=== PATIENT | male | born 1955 | race Caucasian/White ===

== ENCOUNTER → 2018-09-20 | Outpatient (CLI) | payer BC, OTHER ==
[~2018-09-20] MED LIST: IOPAMIDOL (ISOVUE-370) 150 ML BTL IV ONE
== END | disposition home or self-care (01) ==
LOC: FIMAGING 11:19
PROVIDERS: ATTEND Internal Medicine Cardiovascular Disease
DX: R93.1 Abnormal findings on diagnostic imaging of heart and coronary circulation (principal); I25.10 Atherosclerotic heart disease of native coronary artery without angina pectoris; I45.10 Unspecified right bundle-branch block
CPT/HCPCS: Q9967